=== PATIENT | female | born 1965 | race Two or more races ===

== ENCOUNTER 2021-12-30 11:45 | Inpatient (IN) | payer OTHER ==
[~2021-12-30] VITALS: Ht 152.4 cm; Wt 74.8 kg
[2021-12-30] MEDS ORDERED: PEPCID AC20 MG PO (13:24)
[2021-12-31] MEDS ORDERED: ATORVASTATIN CA20 MG (10:10)
[2021-12-31] MEDS ORDERED: DICLOFENAC POTA50 MG (10:10)
== END 2022-01-02 14:39 | disposition home or self-care (01) | DRG 735 ==
LOC: O/R 12-31 08:04 → OB/GYN 12-31 08:04
PROVIDERS: ADMIT Specialist; ATTEND Specialist
PROC: 0UT9FZZ Resection of Uterus, Via Natural or Artificial Opening With Percutaneous Endoscopic Assistance (ICD-10-PCS; 2021-12-31)
PROC: 0UT7FZZ Resection of Bilateral Fallopian Tubes, Via Natural or Artificial Opening With Percutaneous Endoscopic Assistance (ICD-10-PCS; 2021-12-31)
PROC: 0UT2FZZ Resection of Bilateral Ovaries, Via Natural or Artificial Opening With Percutaneous Endoscopic Assistance (ICD-10-PCS; 2021-12-31)
PROC: 0TN74ZZ Release Left Ureter, Percutaneous Endoscopic Approach (ICD-10-PCS; 2021-12-31)
PROC: 0TN64ZZ Release Right Ureter, Percutaneous Endoscopic Approach (ICD-10-PCS; 2021-12-31)
PROC: 0DNW4ZZ Release Peritoneum, Percutaneous Endoscopic Approach (ICD-10-PCS; 2021-12-31)
PROC: 07TC4ZZ Resection of Pelvis Lymphatic, Percutaneous Endoscopic Approach (ICD-10-PCS; principal; 2021-12-31 18:30)
DX: C54.1 Malignant neoplasm of endometrium (principal); Z20.822 Contact with and (suspected) exposure to COVID-19